=== PATIENT | female | born 1975 | race African-American/Black ===

== ENCOUNTER 2019-07-09 21:21 | Emergency (ER) | payer MEDICAID, OTHER ==
[~2019-07-09] VITALS: Ht 172.7 cm; Wt 112.0 kg
[2019-07-09 21:34] VITALS: BP 147/90
== END 2019-07-10 02:05 | disposition left against medical advice (07) ==
LOC: ER 21:21
DX: R07.9 Chest pain, unspecified (principal); Z53.21 Procedure and treatment not carried out due to patient leaving prior to being seen by health care provider
CPT/HCPCS: 93005